=== PATIENT | male | born 1990 | race Caucasian/White ===

== ENCOUNTER → 2025-06-10 10:02 | Outpatient (REF) | payer OTHER, SELFPAY | LOC: RAD 10:02 | PROVIDERS: ATTENDING PHYSICIAN Student in an Organized Health Care Education/Training Program; FAMILY PHYSICIAN Nurse Practitioner Adult Health | DX: N50.89 Other specified disorders of the male genital organs (principal) | CPT/HCPCS: 76870; 93976 ==